=== PATIENT | female | born 2000 | race Hispanic/Latino ===

== ENCOUNTER 2023-02-23 12:48 | Emergency (ER) | payer OTHER, SELFPAY ==
[2023-02-23 13:14] VITALS: BP 151/86; PULSE 118; RESP 20; TEMP 37.7; O2SAT 99; BMI 26.6
[2023-02-23 13:44] LABS: Add Manual Diff / Slide Review NO; Basophils Absolute Auto 0 /uL (0-100); Basophils Percent Auto 0.4 % (0-2); Eosinophils Absolute Auto 0 /uL (0-450); Eosinophils Percent Auto 0.5 % (2-4); Hematocrit 43.1 % (36-46); Hemoglobin 15.1 g/dL (12.0-16.0); Lymphocytes Absolute Auto 400 /uL (1100-4500); Lymphocytes Percent Auto 5.9 % (25-40); Mean Corpuscular Hemoglobin 30.6 PG (26-34); Mean Corpuscular Volume 87.3 fL (80-100); Monocytes Absolute Auto 600 /uL (0-900); Monocytes Percent Auto 9.3 % (3-14); Neutrophils Absolute Auto 5100 /uL (1500-7000); Neutrophils Percent Auto 83.9 % (50-75); Platelet Count 174 X10^3/uL (150-400); Red Blood Cell Count 4.94 X10^6/uL (4.0-5.2); Red Cell Distribution Width 12.6 % (11.6-14.8); White Blood Cell Count 6.1 X10^3/uL (4.5-11.0)
[2023-02-23 13:55] LABS: Appearance Urine UA CLEAR; Bilirubin Urine UA NEGATIVE (NEGATIVE); Color Urine UA YELLOW; Glucose Urine UA NEGATIVE (Negative); Ketones Urine UA 1+ (NEGATIVE); Leukocyte Esterase Urine UA NEGATIVE (NEGATIVE); Nitrite Urine UA NEGATIVE (Negative); Occult Blood Urine UA NEGATIVE (Negative); Protein Urine UA NEGATIVE (Negative); Urobilinogen Urine UA 0.2 E.U./dL (0.2)
[2023-02-23 14:00] LABS: Pregnancy Test Urine Negative (Negative)
[2023-02-23 14:00] LABS: Alanine Aminotransferase 21 IU/L (<35); Albumin 4.6 g/dL (3.5-5.0); Albumin Globulin Ratio 1.3 (1.0-2.8); Alkaline Phosphatase 56 U/L (38-126); Aspartate Aminotransferase 29 IU/L (14-36); BUN Creatinine Ratio 12.4 (6-22); Bilirubin Total 1.1 mg/dL (0.2-1.3); Blood Urea Nitrogen 11 mg/dL (7-17); Calcium 8.7 mg/dL (8.4-10.2); Carbon Dioxide 30 mmol/L (22-32); Chloride 97 mmol/L (98-107); Estimated Glomerular Filt Rate > 60 mL/min (>60); Globulin 3.5 g/dL (1.7-4.1); Glucose 102 mg/dL (70-100); HEMOLYSIS 20 (0-50); Lipase 70 U/L (23-300); Potassium 3.9 mmol/L (3.4-5.1); Sodium 136 mmol/L (137-145); Total Protein 8.1 g/dL (6.3-8.2)
[2023-02-23 14:22] LABS: Bacteria Urine Moderate (10-30); Culture Indicated Urine Cult Not Indicated; RBC Urine 0-1/HPF (0-5/HPF); Squamous Epithelial Cell Urine 1-5 /HPF (0-5/HPF); WBC Urine 0-1/HPF (0-5/HPF)
[2023-02-23] MEDS: ONDANSETRON 4 MG/2 ML INJ IV (15:03)
[2023-02-23 16:44] VITALS: BP 120/69; PULSE 100; RESP 20; TEMP 37.6; O2SAT 95
[2023-02-23 17:00] VITALS: BP 110/69; PULSE 100; O2SAT 97
--- NOTE | 2023-02-23 17:08 | ED.NAVMDI ---
HPI - Nausea/Vomiting/Diarrhea <Eliot Leiva PA-C - Last Filed: 02/23/23 18:21> General Chief complaint: Nausea/Vomiting/Diarrhea Stated complaint: Abd pain, N/V/D body aches, Fever Time Seen by Provider: 02/23/23 14:57 Source: patient Mode of arrival: Ambulatory History of Present Illness HPI Narrative: 22-year-old female with no reported past medical history presents to the ED with 2 days of fever, chills, abdominal pain, nausea, vomiting, diarrhea. Patient states the pain is worst around the periumbilical region. Patient states she has been unable to tolerate p.o., has been persistently vomiting since yesterday. Patient endorses watery diarrhea. Patient denies URI symptoms including cough, sore throat, rhinorrhea, shortness of breath. Patient denies chest pain, dysuria, urinary frequency, urinary urgency, vaginal bleeding, lightheadedness, dizziness, syncope. Related Data Previous Rx's Medication Instructions Recorded ondansetron 4 mg disintegrating 4 mg PO Q8H PRN nausea and 02/23/23 tablet vomiting #20 tabs Allergies Allergy/AdvReac Type Severity Reaction Status Date / Time shellfish derived Allergy Intermediate Hives Verified 02/23/23 13:19 Review of Systems <Eliot Leiva PA-C - Last Filed: 02/23/23 18:21> Review of Systems ROS Unobtainable: All systems reviewed & are unremarkable except as noted in HPI and below Constitutional Constitutional: Reports body ache(s), Reports chills, Denies fatigue, Reports fever(s), Denies frequent falls, Denies lethargy and Denies weakness Eyes Eyes: Denies change in vision, Denies eye discharge, Denies irritation and Denies loss of vision ENT Ears, Nose, Mouth, and Throat: Denies change in voice, Denies dizziness, Denies neck pain, Denies sore throat and Denies throat swelling Cardiovascular Cardiovascular: Denies chest pain, Denies irregular heart rhythm, Denies lightheadedness, Denies palpitations, Denies dyspnea, Denies dyspnea on exertion and Denies orthopnea Respiratory Respiratory: Denies cough, Denies dyspnea, Denies dyspnea on exertion and Denies wheezing Gastrointestinal Gastrointestinal: Reports abdominal pain, Denies change in bowel habits, Reports diarrhea, Reports nausea and Reports vomiting Genitourinary Genitourinary: Denies hematuria, Denies flank pain, Denies urinary incontinence and Denies urinary urgency Musculoskeletal Musculoskeletal: Denies back pain, Denies muscle weakness, Denies neck pain, Denies numbness and Denies tingling Integumentary/Breasts Skin/Breast: Denies pruritus, Denies erythema, Denies rash and Denies wounds Neurologic Neurologic: Denies behavioral changes, Denies confusion, Denies dizziness, Denies frequent falls, Denies loss of vision, Denies numbness, Denies tingling and Denies weakness Psychiatric Psychiatric: Denies anxiety, Denies behavioral changes, Denies confusion, Denies depression, Denies homicidal ideation and Denies suicidal ideation Endocrine Endocrine: Denies fatigue, Denies flushing and Denies palpitations Hematologic/Lymphatic Hematologic/Lymphatic: Denies easy bruising Allergic/Immunologic Allergic/Immunologic: Denies urticaria, Denies throat swelling and Denies wheezing Patient History <Eliot Leiva PA-C - Last Filed: 02/23/23 18:21> Social History Smoking Status: Never smoker Smoking Status: Never smoker alcohol intake frequency: a few times a month Substance Use Type: does not use Exam <SELWYN Villegas Last Filed: 02/23/23 18:21> Narrative Exam Narrative: Const General:?cooperative, healthy appearing and comfortable [facility] Head:?normal to inspection Ears:?hearing grossly normal bilaterally Nose:?external nose normal Face and sinus:?normal facial exam and sinuses nontender Mouth:?oral mucosae normal Throat:?posterior oropharynx normal Eyes General:?appearance normal, both eyes and all related structures Neck Neck:?normal visual inspection and no lymphadenopathy noted Resp Effort & Inspection:?normal respiratory effort Auscultation:?clear to auscultation bilaterally Cardio Rate:?regular rate Rhythm:?regular rhythm GI Abdomen is soft, nondistended. Abdomen is tender to palpation in the periumbilical and right upper quadrant. No CVA tenderness. Neuro General:?patient alert, patient awake and patient oriented x3 Initial Vital Signs Initial Vital Signs: Vital Signs Temperature 99.9 F H 02/23/23 13:14 Pulse Rate 118 H 02/23/23 13:14 Respiratory Rate 20 02/23/23 13:14 Blood Pressure 151/86 H 02/23/23 13:14 Pulse Oximetry 99 02/23/23 13:14 Oxygen Delivery Method Room Air 02/23/23 13:14 <Annie Agee DO - Last Filed: 02/23/23 19:52> Initial Vital Signs Initial Vital Signs: Vital Signs Temperature 99.9 F H 02/23/23 13:14 Pulse Rate 118 H 02/23/23 13:14 Respiratory Rate 20 02/23/23 13:14 Blood Pressure 151/86 H 02/23/23 13:14 Pulse Oximetry 99 02/23/23 13:14 Oxygen Delivery Method Room Air 02/23/23 13:14 Course <Eliot Leiva PA-C - Last Filed: 02/23/23 18:21> Orders Ordered: ED Orders 02/23/23 13:30 Test Urine Stat Urinalysis and Microscopic Stat 02/23/23 13:35 Complete Blood Count AUTO DIFF Stat Comprehensive Metabolic Panel Stat Lipase Stat 02/23/23 17:37 CT abdomen pelvis w con Stat Discontinued Medications Sodium Chloride (Normal Saline 0.9%) 1,000 mls @ 1,000 mls/hr IV BOLUS ONE Stop: 02/23/23 18:06 Last Infusion: 02/23/23 18:24 Dose: 0 mls/hr Documented By: Admin: 02/23/23 17:24 Dose: 1,000 mls/hr Documented By: NAJMA Ketorolac Tromethamine (Ketorolac 30 Mg/Ml Vial) 15 mg IV NOW ONE Stop: 02/23/23 17:08 Last Admin: 02/23/23 17:23 Dose: 15 mg Documented By: NAJMA Ondansetron HCl (Ondansetron 4 Mg Odt) 4 mg PO NOW PRN PRN Reason: Nausea And Vomiting Ondansetron HCl (Ondansetron 4 Mg/2 Ml Inj) 4 mg IV NOW PRN PRN Reason: Nausea And Vomiting Last Admin: 02/23/23 15:03 Dose: 4 mg Documented By: MAXIMO Vital Signs Vital signs: Vital Signs - 8 hr 02/23/23 13:14 02/23/23 16:44 02/23/23 17:00 Temperature 99.9 F H 99.6 F Pulse Rate 118 H 100 H Respiratory Rate 20 20 Blood Pressure 151/86 H 120/69 110/69 Pulse Oximetry 99 95 Oxygen Delivery Method Room Air Room Air 02/23/23 17:00 05/09/23 17:30 02/23/23 17:31 Temperature Pulse Rate 100 H 98 H Respiratory Rate Blood Pressure 112/69 Pulse Oximetry 97 99 Oxygen Delivery Method 02/23/23 17:31 02/23/23 18:00 02/23/23 18:00 Temperature Pulse Rate 94 H 93 H Respiratory Rate Blood Pressure 107/67 Pulse Oximetry 99 99 Oxygen Delivery Method Room Air <Annie Agee, DO - Last Filed: 02/23/23 19:52> Orders Ordered: ED Orders 02/23/23 13:30 Test Urine Stat Urinalysis and Microscopic Stat 02/23/23 13:35 Complete Blood Count AUTO DIFF Stat Comprehensive Metabolic Panel Stat Lipase Stat 02/23/23 17:37 CT abdomen pelvis w con Stat Discontinued Medications Sodium Chloride (Normal Saline 0.9%) 1,000 mls @ 1,000 mls/hr IV BOLUS ONE Stop: 02/23/23 18:06 Last Infusion: 02/23/23 18:24 Dose: 0 mls/hr Documented By: Admin: 02/23/23 17:24 Dose: 1,000 mls/hr Documented By: NAJMA Ketorolac Tromethamine (Ketorolac 30 Mg/Ml Vial) 15 mg IV NOW ONE Stop: 02/23/23 17:08 Last Admin: 02/23/23 17:23 Dose: 15 mg Documented By: NAJMA Ondansetron HCl (Ondansetron 4 Mg Odt) 4 mg PO NOW PRN PRN Reason: Nausea And Vomiting Ondansetron HCl (Ondansetron 4 Mg/2 Ml Inj) 4 mg IV NOW PRN PRN Reason: Nausea And Vomiting Last Admin: 02/23/23 15:03 Dose: 4 mg Documented By: MAXIMO Vital Signs Vital signs: Vital Signs - 8 hr 02/23/23 13:14 02/23/23 16:44 02/23/23 17:00 Temperature 99.9 F H 99.6 F Pulse Rate 118 H 100 H Respiratory Rate 20 20 Blood Pressure 151/86 H 120/69 110/69 Pulse Oximetry 99 95 Oxygen Delivery Method Room Air Room Air 02/23/23 17:00 02/23/23 17:30 02/23/23 17:31 Temperature Pulse Rate 100 H 98 H Respiratory Rate Blood Pressure 112/69 Pulse Oximetry 97 99 Oxygen Delivery Method 02/23/23 17:31 02/23/23 18:00 02/23/23 18:00 Temperature Pulse Rate 94 H 93 H Respiratory Rate Blood Pressure 107/67 Pulse Oximetry 99 99 Oxygen Delivery Method Room Air MDM - Nausea/Vomiting/Diarrhea <Eliot Leiva PA-C - Last Filed: 02/23/23 18:21> Lab Data 02/23/23 13:35 02/23/23 13:35 Labs: Lab Results 02/23/23 02/23/23 02/23/23 Range/Units 13:30 13:30 13:35 WBC 6.1 (4.5-11.0) X10^3/uL RBC 4.94 (4.0-5.2) X10^6/uL Hgb 15.1 (12.0-16.0) g/dL Hct 43.1 (36-46) % MCV 87.3 (80-100) fL MCH 30.6 (26-34) PG MCHC 35.0 (30-36) % RDW 12.6 (11.6-14.8) % Plt Count 174 (150-400) X10^3/uL Neut % (Auto) 83.9 H (50-75) % Lymph % (Auto) 5.9 L (25-40) % [place] % (Auto) 9.3 (3-14) % Eos % (Auto) 0.5 L (2-4) % Baso % (Auto) 0.4 (0-2) % Neut # (Auto) 5100 (8923-3600) /uL Lymph # (Auto) 400 L (0146-4764) /uL [place] # (Auto) 600 (0-900) /uL Eos # (Auto) 0 (0-450) /uL Baso # (Auto) 0 (0-100) /uL Sodium (137-145) mmol/L Potassium (3.4-5.1) mmol/L Chloride (98-107) mmol/L Carbon Dioxide (22-32) mmol/L BUN (7-17) mg/dL Creatinine (0.52-1.04) mg/dL Estimated GFR (>60) mL/min BUN/Creatinine Ratio (6-22) Glucose (70-100) mg/dL Calcium (8.4-10.2) mg/dL Total Bilirubin (0.2-1.3) mg/dL AST (14-36) IU/L ALT (<35) IU/L Alkaline Phosphatase (38-126) U/L Total Protein (6.3-8.2) g/dL Albumin (3.5-5.0) g/dL Globulin (1.7-4.1) g/dL Albumin/Globulin Ratio (1.0-2.8) Lipase (23-300) U/L Urine Color Yellow Urine Appearance Clear Urine pH 6.0 (4.5-8.0) Ur Specific [place] 1.020 (1.000-1.035) Urine Protein Negative (Negative) Urine Glucose (UA) Negative (Negative) g/dL Urine Ketones 1+ H (NEGATIVE) Urine Occult Blood Negative (Negative) Urine Nitrate Negative (Negative) Urine Bilirubin Negative (NEGATIVE) Urine Urobilinogen 0.2 (0.2) E.U./dL Ur Leukocyte Esterase Negative (NEGATIVE) Urine RBC 0-1/hpf (0-5/HPF) Urine WBC 0-1/hpf (0-5/HPF) Ur Squamous Epith Cells 1-5 /hpf (0-5/HPF) Urine Bacteria Moderate (10-30) H (None) Ur Culture Indicated? Cult not indicated Urine Test Negative (Negative) 02/23/23 Range/Units 13:35 WBC (4.5-11.0) X10^3/uL RBC (4.0-5.2) X10^6/uL Hgb (12.0-16.0) g/dL Hct (36-46) % MCV (80-100) fL MCH (26-34) PG MCHC (30-36) % RDW (11.6-14.8) % Plt Count (150-400) X10^3/uL Neut % (Auto) (50-75) % Lymph % (Auto) (25-40) % [place] % (Auto) (3-14) % Eos % (Auto) (2-4) % Baso % (Auto) (0-2) % Neut # (Auto) (5569-9051) /uL Lymph # (Auto) (8477-1644) /uL [place] # (Auto) (0-900) /uL Eos # (Auto) (0-450) /uL Baso # (Auto) (0-100) /uL Sodium 136 L (137-145) mmol/L Potassium 3.9 (3.4-5.1) mmol/L Chloride 97 L (98-107) mmol/L Carbon Dioxide 30 (22-32) mmol/L BUN 11 (7-17) mg/dL Creatinine 0.89 (0.52-1.04) mg/dL Estimated GFR > 60 (>60) mL/min BUN/Creatinine Ratio 12.4 (6-22) Glucose 102 H (70-100) mg/dL Calcium 8.7 (8.4-10.2) mg/dL Total Bilirubin 1.1 (0.2-1.3) mg/dL AST 29 (14-36) IU/L ALT 21 (<35) IU/L Alkaline Phosphatase 56 (38-126) U/L Total Protein 8.1 (6.3-8.2) g/dL Albumin 4.6 (3.5-5.0) g/dL Globulin 3.5 (1.7-4.1) g/dL Albumin/Globulin Ratio 1.3 (1.0-2.8) Lipase 70 (23-300) U/L Urine Color Urine Appearance Urine pH (4.5-8.0) Ur Specific [place] (1.000-1.035) Urine Protein (Negative) Urine Glucose (UA) (Negative) g/dL Urine Ketones (NEGATIVE) Urine Occult Blood (Negative) Urine Nitrate (Negative) Urine Bilirubin (NEGATIVE) Urine Urobilinogen (0.2) E.U./dL Ur Leukocyte Esterase (NEGATIVE) Urine RBC (0-5/HPF) Urine WBC (0-5/HPF) Ur Squamous Epith Cells (0-5/HPF) Urine Bacteria (None) Ur Culture Indicated? Urine Test (Negative) Point of Care Testing Test Results Negative MDM Narrative Medical decision making narrative: 22-year-old female with no reported past medical history presents to the ED with 2 days of fever, chills, abdominal pain, nausea, vomiting, diarrhea. Concern for gastroenteritis versus appendicitis versus diverticulitis versus UTI versus pyelonephritis versus ectopic versus intrauterine versus other intra-abdominal pathology versus other. Will obtain labs, lipase, UA, urine hCG, CT abdomen pelvis. Will give Toradol, IV fluids, Zofran for symptoms. Will reassess. Labs, urine within normal limits. CT abdomen pelvis shows signs of gastroenteritis, and no other acute findings. Discussed findings with patient. Patient has responded well with IV fluids and Zofran. Will prescribe Zofran. Discussed the importance of good hydration, BRAT diet for the diarrhea. ED return precautions were discussed with patient. Patient verbalized understanding. Medical records reviewed: Yes <Annie Agee, DO - Last Filed: 02/23/23 19:52> Lab Data Labs: Lab Results 02/23/23 02/23/23 02/23/23 Range/Units 13:30 13:30 13:35 WBC 6.1 (4.5-11.0) X10^3/uL RBC 4.94 (4.0-5.2) X10^6/uL Hgb 15.1 (12.0-16.0) g/dL Hct 43.1 (36-46) % MCV 87.3 (80-100) fL MCH 30.6 (26-34) PG MCHC 35.0 (30-36) % RDW 12.6 (11.6-14.8) % Plt Count 174 (150-400) X10^3/uL Neut % (Auto) 83.9 H (50-75) % Lymph % (Auto) 5.9 L (25-40) % [place] % (Auto) 9.3 (3-14) % Eos % (Auto) 0.5 L (2-4) % Baso % (Auto) 0.4 (0-2) % Neut # (Auto) 5100 (7943-4681) /uL Lymph # (Auto) 400 L (9056-9784) /uL [place] # (Auto) 600 (0-900) /uL Eos # (Auto) 0 (0-450) /uL Baso # (Auto) 0 (0-100) /uL Sodium (137-145) mmol/L Potassium (3.4-5.1) mmol/L Chloride (98-107) mmol/L Carbon Dioxide (22-32) mmol/L BUN (7-17) mg/dL Creatinine (0.52-1.04) mg/dL Estimated GFR (>60) mL/min BUN/Creatinine Ratio (6-22) Glucose (70-100) mg/dL Calcium (8.4-10.2) mg/dL Total Bilirubin (0.2-1.3) mg/dL AST (14-36) IU/L ALT (<35) IU/L Alkaline Phosphatase (38-126) U/L Total Protein (6.3-8.2) g/dL Albumin (3.5-5.0) g/dL Globulin (1.7-4.1) g/dL Albumin/Globulin Ratio (1.0-2.8) Lipase (23-300) U/L Urine Color Yellow Urine Appearance Clear Urine pH 6.0 (4.5-8.0) Ur Specific [place] 1.020 (1.000-1.035) Urine Protein Negative (Negative) Urine Glucose (UA) Negative (Negative) g/dL Urine Ketones 1+ H (NEGATIVE) Urine Occult Blood Negative (Negative) Urine Nitrate Negative (Negative) Urine Bilirubin Negative (NEGATIVE) Urine Urobilinogen 0.2 (0.2) E.U./dL Ur Leukocyte Esterase Negative (NEGATIVE) Urine RBC 0-1/hpf (0-5/HPF) Urine WBC 0-1/hpf (0-5/HPF) Ur Squamous Epith Cells 1-5 /hpf (0-5/HPF) Urine Bacteria Moderate (10-30) H (None) Ur Culture Indicated? Cult not indicated Urine Test Negative (Negative) 02/23/23 Range/Units 13:35 WBC (4.5-11.0) X10^3/uL RBC (4.0-5.2) X10^6/uL Hgb (12.0-16.0) g/dL Hct (36-46) % MCV (80-100) fL MCH (26-34) PG MCHC (30-36) % RDW (11.6-14.8) % Plt Count (150-400) X10^3/uL Neut % (Auto) (50-75) % Lymph % (Auto) (25-40) % [place] % (Auto) (3-14) % Eos % (Auto) (2-4) % Baso % (Auto) (0-2) % Neut # (Auto) (4169-6731) /uL Lymph # (Auto) (4955-1283) /uL [place] # (Auto) (0-900) /uL Eos # (Auto) (0-450) /uL Baso # (Auto) (0-100) /uL Sodium 136 L (137-145) mmol/L Potassium 3.9 (3.4-5.1) mmol/L Chloride 97 L (98-107) mmol/L Carbon Dioxide 30 (22-32) mmol/L BUN 11 (7-17) mg/dL Creatinine 0.89 (0.52-1.04) mg/dL Estimated GFR > 60 (>60) mL/min BUN/Creatinine Ratio 12.4 (6-22) Glucose 102 H (70-100) mg/dL Calcium 8.7 (8.4-10.2) mg/dL Total Bilirubin 1.1 (0.2-1.3) mg/dL AST 29 (14-36) IU/L ALT 21 (<35) IU/L Alkaline Phosphatase 56 (38-126) U/L Total Protein 8.1 (6.3-8.2) g/dL Albumin 4.6 (3.5-5.0) g/dL Globulin 3.5 (1.7-4.1) g/dL Albumin/Globulin Ratio 1.3 (1.0-2.8) Lipase 70 (23-300) U/L Urine Color Urine Appearance Urine pH (4.5-8.0) Ur Specific [place] (1.000-1.035) Urine Protein (Negative) Urine Glucose (UA) (Negative) g/dL Urine Ketones (NEGATIVE) Urine Occult Blood (Negative) Urine Nitrate (Negative) Urine Bilirubin (NEGATIVE) Urine Urobilinogen (0.2) E.U./dL Ur Leukocyte Esterase (NEGATIVE) Urine RBC (0-5/HPF) Urine WBC (0-5/HPF) Ur Squamous Epith Cells (0-5/HPF) Urine Bacteria (None) Ur Culture Indicated? Urine Test (Negative) Point of Care Testing Test Results Negative Discharge Plan Departure Patient Disposition: Home Clinical Impression: Gastroenteritis Instructions: DI for Viral Gastroenteritis -- Adult Activity Restrictions/Additional Instructions: You were evaluated in the ED today for nausea, vomiting, diarrhea, fever and chills. Your labs, urine were normal. Your CT abdomen pelvis shows gastroenteritis, which is most commonly caused by food poisoning. You are being prescribed Zofran for nausea and vomiting. Please continue to stay well hydrated. You may consume a BRAT diet consisting of bananas, rice, apples, toast in order to treat your diarrhea. Please follow-up with your PCP as soon as possible. Return to the ED if you are persistently vomiting, you experience worsening abdominal pain. Prescriptions: New ondansetron 4 mg tablet,disintegrating 4 mg PO Q8H PRN (Reason: nausea and vomiting) Qty: 20 0RF Referrals: Provider,Reggie FOX [Primary Care Provider] - Stand Alone Forms: Patient Portal/API <Annie Agee DO - Last Filed: 02/23/23 19:52> Cosign ED Attending Stanislawature Attestation: I was immediately available in the department for consultation. Documentation has been reviewed.
[2023-02-23] MEDS: KETOROLAC 30 MG/ML VIAL 15 MG IV (17:23)
[2023-02-23] MEDS: SODIUM CHLORIDE 0.9% 1,000 ML 1000 ML IV (17:24)
[2023-02-23 17:30] VITALS: PULSE 98; O2SAT 99
[2023-02-23 17:31] VITALS: BP 112/69; PULSE 94; O2SAT 99
--- NOTE | 2023-02-23 17:37 | DI.CT.S_ITS ---
PROCEDURE: CT ABDOMEN PELVIS W CON INDICATIONS: periumbilical pain TECHNIQUE: After the administration of intravenous contrast, axial sections acquired from the lung bases to the pubic symphysis. Coronal and sagittal reformats were performed. For radiation dose reduction, the following was used: automated exposure control, adjustment of mA and/or kV according to patient size. COMPARISON: None. FINDINGS: Image quality: Excellent. Lung bases: Unremarkable. Heart: No significant findings. ABDOMEN: Liver: Unremarkable. Gallbladder: Unremarkable Biliary ducts: Unremarkable. Pancreas: Unremarkable. Spleen: Unremarkable. Adrenal Glands: Unremarkable. Kidneys and Ureters: No evidence for hydronephrosis. Bilateral ureters are normal in course and caliber. No perinephric stranding. Moderate cortical scarring of the right kidney. Stomach and Bowel: Stomach appears unremarkable. Multiple loops of fluid-filled small bowel and colon identified. There is mild patulous appearance of the cecum. Appendix appears within normal limits and is air-filled. No evidence for bowel obstruction. Peritoneum: No abnormal intraperitoneal fluid. No free air. Ventral Wall: No hernias. Abdominal Nodes: No retroperitoneal or mesenteric adenopathy by size criteria. Vessels: Aorta and inferior vena cava are normal in size. PELVIS: Pelvic Organs: An IUD is noted within the uterus. Bladder: Urinary bladder thickness appears normal for degree of distention. No perivesicular inflammatory stranding. Pelvic Nodes: No enlarged lymph nodes. Miscellaneous: No hernias are seen. Bones: Unremarkable. IMPRESSION: 1. Numerous loops of fluid-filled small bowel and colon without evidence for acute inflammatory changes. Findings are nonspecific but may represent enteritis from either infectious or inflammatory process. No evidence for obstruction. Appendix appears normal and is air-filled. 2. Right renal cortical scarring compatible with remote history of renal infection/inflammation. No evidence for hydronephrosis. Dictated by: Rick Henriquez M.D. on 02/23/2023 at 17:58 Approved by: Rick Henriquez M.D. on 02/23/2023 at 18:04
[2023-02-23 18:00] VITALS: BP 107/67; PULSE 93; O2SAT 99
== END 2023-02-23 18:27 | disposition home or self-care (01) ==
PROVIDERS: Emergency Medicine; Emergency Provider Student in an Organized Health Care Education/Training Program
DX: K52.9 Noninfective gastroenteritis and colitis, unspecified (principal); R11.2 Nausea with vomiting, unspecified
CPT/HCPCS: 36415; 74177; 80053; 81001; 81025; 83690; 85025; 96361; 96374; 96375; 99284; J1885; J2405